=== PATIENT | male | born 1965 | race Two or more races ===

== ENCOUNTER 2024-11-30 19:26 | Emergency (ER) | payer OTHER, SELFPAY ==
[~2024-11-30] VITALS: Ht 162.6 cm; Wt 66.7 kg
--- NOTE | 2024-11-30 19:47 | ED.PDOC ---
History of Present Illness HPI Comments 59 y/o M presents with c/o fever, chills, dry cough and poor appetite for 4x days. He reports no recent travel, sick contact, or any significant medical history. Patient endorses Ibuprofen use prior to ED arrival at 0900, today. Patient was states that his fevers very intermittent and he was going to full d ay without having any fever without the use of antipyretic medication but then it comes back. He also mentions testing negative for Covid19 and Influenza at another facility he went to for symptoms during early onset. Patient denies any nausea, vomiting, abdominal pain, urinary symptoms, or other associated symptoms at this time. Patient states he overall feels very well and has been exercising and going about his day as usual but his family insisted that he come in to be evaluated. Time Seen by MD: 19:40 Reviewed Notes: Nurses Notes, Medications, Allergies Allergies: Coded Allergies: NO KNOWN ALLERGIES (Unverified , 11/30/24) Home Meds Active Scripts Azithromycin (Azithromycin) 1 Gm Pow, 1 PACK PO ONCE, #1 PACK Prov:SINAN ATKINSON MD 11/30/24 Information Source: Patient Mode of Arrival: Ambulatory Severity: Moderate Timing: Hours Duration: Since onset Prehospital treatment: None Past Medical History PAST MEDICAL HISTORY: Denies Surgical History: Denies all surgeries Family History Family History: Unknown Social History Smoker: Non-Smoker Alcohol: Denies ETOH Use Drugs: Denies Drug Use Lives In: Home All Other Systems: Reviewed and Negative (Comprehensive systems review obtained and negative except for what is stated in the HPI.) Physical Exam General Appearance: No Apparent Distress, Normal HEENT: Normal ENT Inspection, Pharynx Normal, TMs Normal Neck: Full Range of Motion, Non-Tender, Normal, Normal Inspection Respiratory: Chest Non-Tender, Lungs Clear, No Accessory Muscle Use, No Respiratory Distress, Normal Breath Sounds, Other (Intermittent dry cough during exam) Cardiovascular: No Edema, No JVD, No Murmur, No Gallop, Normal Peripheral Pulses, Regular Rate/Rhythm Breast Exam: Deferred Gastrointestinal: No Organomegaly, Non Tender, No Pulsatile Mass, Normal Bowel Sounds, Soft Genitalia: Deferred Pelvic: Deferred Rectal: Deferred Extremities: No calf tenderness, Normal capillary refill, Normal inspection, Normal range of motion, Non-tender, No pedal edema Musculoskeletal : Apperance: Normal Neurologic: Alert, procurement buyer II-XII nml as Tested, No Motor Deficits, Normal Affect, Normal Mood, No Sensory Deficits Cerebellar Function: Normal Reflexes: Normal Skin: Dry, Normal Color, Warm Lymphatic: No Adenopathy Was a procedure done? Was a procedure done?: No Differential Dx Considerations may include: URI, PNA, viral syndrome, sinusitis, retropharyngeal abscess, strep throat X-Ray, Labs, Meds, VS Vital Signs Date Time Temp Pulse Resp B/P (MAP) Pulse Ox O2 Delivery O2 Flow Rate FiO2 11/30/24 19:51 102.8 129 20 145/85 (105) 97 102.8 11/30/24 19:51 97 Room Air* 0 21 11/30/24 19:50 102.8 11/30/24 19:49 102.8 Lab Test 11/30/24 20:03 11/30/24 19:51 Range/Units Influenza Type A Antigen Negative Negative Influenza Type B Antigen Negative Negative SARS-CoV-2 Antigen (Rapid) Negative NEGATIVE White Blood Count 5.0 4.4-10.8 10^3/uL Red Blood Count 4.73 4.5-5.90 10^6/uL Hemoglobin 13.6 13.5-17.5 g/dL Hematocrit 40.7 L 41.0-53.0 % Mean Corpuscular Volume 86.0 80.0-100.0 fL Mean Corpuscular Hemoglobin 28.8 28.0-32.0 pg Mean Corpuscular Hemoglobin Concent 33.5 32.0-36.0 g/dL Red Cell Distribution Width 13.8 11.8-14.3 % Platelet Count 197 140-450 10^3/uL Mean Platelet Volume 7.6 6.9-10.8 fL Neutrophils (%) (Auto) 70.8 37.0-80.0 % Lymphocytes (%) (Auto) 16.9 10.0-50.0 % Monocytes (%) (Auto) 11.8 0.0-12.0 % Eosinophils (%) (Auto) 0.1 0.0-7.0 % Basophils (%) (Auto) 0.4 0.0-2.0 % Neutrophils # (Auto) 3.6 1.6-8.6 10 ^3/uL Lymphocytes # (Auto) 0.8 0.4-5.4 10 ^3/uL Monocytes # (Auto) 0.6 0-1.3 10 ^3/uL Eosinophils # (Auto) 0 0-0.8 10 ^3/uL Basophils # (Auto) 0 0-0.2 10 ^3/uL Nucleated Red Blood Cells 0.1 % Sodium Level 135 L 136-145 mmol/L Potassium Level 3.6 3.5-5.1 mmol/L Chloride Level 103 98-107 mmol/L Carbon Dioxide Level 23 20-31 mmol/L Anion Gap 9 5-15 Blood Urea Nitrogen 20 9-23 mg/dL Creatinine 1.01 0.700-1.30 mg/dL Glomerular Filtration Rate Calc 87 >90 mL/min BUN/Creatinine Ratio 19.8 10.0-20.0 Serum Glucose 156 H 74-106 mg/dL Calcium Level 9.1 8.7-10.4 mg/dL Current Medications Medications (Trade) Dose Ordered Sig/Silvia Route Start Time Stop Time Status Last Admin Acetaminophen (Tylenol Tablet) 650 mg ONCE ONCE PO 11/30/24 19:45 11/30/24 19:46 DC 11/30/24 19:50 Ibuprofen (Motrin Tablet) 600 mg ONCE ONCE PO 11/30/24 19:45 11/30/24 19:46 DC 11/30/24 19:49 X-Ray, Labs, Meds, VS Comment 59-year-old male here today with the complaints of fever, chills, decreased appetite, and dry cough. Vitals notable for initial fever which improved with the use of Tylenol/ibuprofen in the ER. Physical exam notable for a dry cough but otherwise unremarkable. COVID and influenza negative. Chest x-ray with evidence of possible viral illness. Given the patient has been experiencing symptoms for four days, I had a long discussion with the him and decided to prescribe him azithromycin that he will fill should his symptoms not improve in 1-2 days. Encouraged the patient to continue to use Tylenol and ibuprofen at home, drink plenty of water, and follow up with his primary care provider within 2-3 days for re-evaluation. Patient was discharged home in stable condition ambulating with a steady gait in no distress. Doubt sinusitis, pneumonia, strep throat, retropharyngeal abscess, otitis media or externa, mastoiditis, ACS, or any other significant acute process. Images Reviewed?: Images reviewed and evaluated by me Time of 1ST Reevaluation: 20:10 Reevaluation 1ST: Unchanged Time of 2ND Reevaluation: 21:04 Reevaluation 2ND: Improved Patient Education/Counseling: Diagnosis, Treatment, Prognosis, Need For Follow Up Family Education/Counseling: No Family Present Additional Information Previous medical encounters reviewed: N/A The following tests were ordered, and results were reviewed by me: CXR, covid19/influenza a/b tests, BMP, CBC Additional Information was gathered from interviewing the following independent historians: N/A I reviewed and agreed with the following test results read by other providers: CXR I discussed treatment and results with medical personnel and: Patient Departure 1 Departure Time of Disposition: 21:18 Impression: Primary Impression: Viral URI Disposition: HOME / SELF CARE / HOMELESS Condition: Stable e-Prescriptions Azithromycin (Azithromycin) 1 Gm Pow 1 PACK PO ONCE, #1 PACK Prov: SINAN ATKINSON MD 11/30/24 Critical Care Note Critical Care Time?: No Stability Stability form required: No Heart Score Heart Score: Heart Score Response (Comments) Value History N/A 0 EKG N/A 0 Age N/A 0 Risk Factors N/A 0 Troponin N/A 0 Total 0 I personally scribed for SINAN ATKINSON MD ([email or web address]) on 11/30/24 at 19:47. Electronically submitted by Rafi Sandoval ([email or web address]). SINAN ATKINSON MD Nov 30, 2024 19:47
[2024-11-30] MEDS: IBUPROFEN 600 MG TAB PO ONE (19:49)
[2024-11-30] MEDS: ACETAMINOPHEN 325 MG TAB PO ONE (19:50)
[2024-11-30 20:17] LABS: Basophils # (auto) 0 10 ^3/uL (0-0.2); Basophils % (auto) 0.4 % (0.0-2.0); Eosinophils # (auto) 0 10 ^3/uL (0-0.8); Eosinophils % (auto) 0.1 % (0.0-7.0); Hematocrit 40.7 % (41.0-53.0); Hemoglobin 13.6 g/dL (13.5-17.5); Lymphocytes # (auto) 0.8 10 ^3/uL (0.4-5.4); Lymphocytes % (auto) 16.9 % (10.0-50.0); Mean Corpuscular Hemoglobin 28.8 pg (28.0-32.0); Mean Corpuscular Hgb Conc. 33.5 g/dL (32.0-36.0); Monocytes # (auto) 0.6 10 ^3/uL (0-1.3); Monocytes % (auto) 11.8 % (0.0-12.0); Neutrophils # (auto) 3.6 10 ^3/uL (1.6-8.6); Neutrophils % (auto) 70.8 % (37.0-80.0); Nucleated Red Blood Cells % 0.1 %; Platelet Count (auto) 197 10^3/uL (140-450); Red Blood Cells 4.73 10^6/uL (4.5-5.90); Red Cell Distribution Width 13.8 % (11.8-14.3)
[2024-11-30 20:18] LABS: Chloride 103 mmol/L (98-107); Potassium 3.6 mmol/L (3.5-5.1)
[2024-11-30 20:19] LABS: Anion Gap 9 (5-15); Calcium 9.1 mg/dL (8.7-10.4); Carbon Dioxide 23 mmol/L (20-31)
--- NOTE | 2024-11-30 20:19 | DVH ---
CHEST RADIOGRAPH Indication: fever Technique: Single frontal view of the chest was obtained Comparison: None FINDINGS: There are increased peribronchial markings bilaterally no iconsolidates or effusions. IMPRESSION: 1. Increased peribronchial markings. Differential diagnosis would include viral infection, bronchitis or asthma.
[2024-11-30 20:24] LABS: BUN/Creatinine Ratio 19.8 (10.0-20.0); Blood Urea Nitrogen 20 mg/dL (9-23)
[2024-11-30 20:25] LABS: Sodium 135 mmol/L (136-145)
[2024-11-30 20:26] LABS: Glucose 156 mg/dL (74-106)
[2024-11-30 20:44] LABS: COVID19 ANTIGEN SOFIA FIA NEGATIVE (NEGATIVE)
[2024-11-30 20:45] LABS: Rapid Influenza A Negative (Negative); Rapid Influenza B Negative (Negative)
[2024-11-30 21:13] VITALS: BP 134/80; PULSE 97; RESP 18; TEMP 99.1; O2SAT 96
[2024-11-30] MEDS ORDERED: AZIT1POW12 PO (21:13)
== END 2024-11-30 21:19 | disposition home or self-care (01) ==
LOC: ER 19:26
DX: J06.9 Acute upper respiratory infection, unspecified (principal); B97.89 Other viral agents as the cause of diseases classified elsewhere; Z20.822 Contact with and (suspected) exposure to COVID-19
CPT/HCPCS: 36415; 71045; 80048; 85025; 87426; 87804

== ENCOUNTER 2025-08-05 01:16 | Emergency (ER) | payer SELFPAY ==
[~2025-08-05] VITALS: Ht 165.1 cm; Wt 69.7 kg
[~2025-08-05 01:16] MED LIST: AZIT1POW12 PO
--- NOTE | 2025-08-05 01:45 | ECG ---
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
--- NOTE | 2025-08-05 02:07 | ED.PDOC ---
History of Present Illness HPI Comments 59-year-old male presents with chief complaint of headache. Patient endorses on sudden, unprovoked, atraumatic onset of pounding pain at around 1900, last night. He reports taking [id number] medications enteritis asleep at off to know avail few hours later. He also states on feeling anxious pulling at urgent care visit for gastrointestinal symptoms on July 30, 2025, and being told on having an abnormal EKG any needing to follow up with Cardiology then. Patient denies having any chest pain, dizziness, vision or speech changes, or further acute symptoms. Upon arrival to the ED triage, patient was found hypertensive 171/91. Patient reports on history of hypertension and being trialed on a new medication, recently, that he reports taking, today Chief Complaint: Abnormal LAB's Time Seen by MD: 02:00 Reviewed Notes: Nurses Notes, Medications, Allergies Allergies: Coded Allergies: NO KNOWN ALLERGIES (Unverified , 11/30/24) Home Meds Active Scripts Amlodipine Besylate (Amlodipine Besylate) 5 Mg Tab, 1 TAB PO DAILY, #90 TAB 3 Refills Prov:LEÓN BEARDEN MD 08/05/25 Azithromycin (Azithromycin) 1 Gm Pow, 1 PACK PO ONCE, #1 PACK Prov:SINAN ATKINSON MD 11/30/24 Information Source: Patient Mode of Arrival: Ambulatory Severity: Moderate Timing: Hours Duration: Since onset Prehospital treatment: None Past Medical History PAST MEDICAL HISTORY: HTN Surgical History: Denies all surgeries Family History Family History: Unknown Social History Smoker: Non-Smoker Alcohol: Denies ETOH Use Drugs: Denies Drug Use Lives In: Home All Other Systems: Reviewed and Negative (As per HPI) Physical Exam General Appearance: Normal, Other (Anxious affect) HEENT: Normal ENT Inspection, Pharynx Normal, TMs Normal Neck: Full Range of Motion, Non-Tender, Normal, Normal Inspection Respiratory: Chest Non-Tender, Lungs Clear, No Accessory Muscle Use, No Respiratory Distress, Normal Breath Sounds Cardiovascular: No Edema, No JVD, No Murmur, No Gallop, Normal Peripheral Pulses, Regular Rate/Rhythm Breast Exam: Deferred Gastrointestinal: No Organomegaly, Non Tender, No Pulsatile Mass, Normal Bowel Sounds, Soft Genitalia: Deferred Pelvic: Deferred Rectal: Deferred Extremities: No calf tenderness, Normal capillary refill, Normal inspection, Normal range of motion, Non-tender, No pedal edema Musculoskeletal : Apperance: Normal Neurologic: Alert, perfume maker II-XII nml as Tested, No Motor Deficits, No Sensory Deficits, Other (Anxious affect) Cerebellar Function: Normal Reflexes: Normal Skin: Dry, Normal Color, Warm Lymphatic: No Adenopathy Was a procedure done? Was a procedure done?: No EKG EKG : Pulse Rate (adult): 73 [place]: Normal Cardiac Rhythm: NSR Block: None Hypertrophy: None ST: Normal Differential Dx Considerations may include: Anxiety, hypertension-primary, hypertensive emergency, migraines, tension headache, aneurysm, among others X-Ray, Labs, Meds, VS Vital Signs Date Time Temp Pulse Resp B/P (MAP) Pulse Ox O2 Delivery O2 Flow Rate FiO2 08/05/25 04:11 98.2 80 18 158/93 (114) 100 98.2 08/05/25 03:52 173/98 08/05/25 03:39 75 16 98 Room Air* 0 21 08/05/25 03:39 98.2 75 16 173/98 (123) 98 98.2 08/05/25 02:07 73 08/05/25 01:39 73 08/05/25 01:29 98.1 102 18 171/91 97 98.1 Lab Test 08/05/25 03:15 08/05/25 02:13 Range/Units Troponin I High Sensitivity 3 L 3 L </=54 ng/L White Blood Count 6.7 4.4-10.8 10^3/uL Red Blood Count 5.09 4.5-5.90 10^6/uL Hemoglobin 14.9 13.5-17.5 g/dL Hematocrit 44.4 41.0-53.0 % Mean Corpuscular Volume 87.3 80.0-100.0 fL Mean Corpuscular Hemoglobin 29.3 28.0-32.0 pg Mean Corpuscular Hemoglobin Concent 33.6 32.0-36.0 g/dL Red Cell Distribution Width 13.2 11.8-14.3 % Platelet Count 276 140-450 10^3/uL Mean Platelet Volume 7.3 6.9-10.8 fL Neutrophils (%) (Auto) 64.6 37.0-80.0 % Lymphocytes (%) (Auto) 25.6 10.0-50.0 % Monocytes (%) (Auto) 8.3 0.0-12.0 % Eosinophils (%) (Auto) 1.1 0.0-7.0 % Basophils (%) (Auto) 0.4 0.0-2.0 % Neutrophils # (Auto) 4.3 1.6-8.6 10 ^3/uL Lymphocytes # (Auto) 1.7 0.4-5.4 10 ^3/uL Monocytes # (Auto) 0.6 0-1.3 10 ^3/uL Eosinophils # (Auto) 0.1 0-0.8 10 ^3/uL Basophils # (Auto) 0 0-0.2 10 ^3/uL Nucleated Red Blood Cells 0.1 % Sodium Level 142 136-145 mmol/L Potassium Level 3.7 3.5-5.1 mmol/L Chloride Level 108 H 98-107 mmol/L Carbon Dioxide Level 26 20-31 mmol/L Anion Gap 8 5-15 Blood Urea Nitrogen 21 9-23 mg/dL Creatinine 1.10 0.700-1.30 mg/dL Glomerular Filtration Rate Calc 78 >90 mL/min BUN/Creatinine Ratio 19.1 10.0-20.0 Serum Glucose 120 H 74-106 mg/dL Calcium Level 8.7 8.7-10.4 mg/dL Magnesium Level 2.3 1.6-2.6 mg/dL Total Bilirubin 0.5 0.2-1.0 mg/dL Aspartate Amino Transferase (AST) 19 13-40 U/L Alanine Aminotransferase (ALT) 25 7-40 U/L Alkaline Phosphatase 81 46-116 U/L Total Protein 6.7 5.7-8.2 g/dL Albumin 4.1 3.2-4.8 g/dL Current Medications Medications (Trade) Dose Ordered Sig/Silvia Route Start Time Stop Time Status Last Admin Lisinopril (Zestril Tablet) 20 mg ONCE ONCE PO 08/05/25 03:45 08/05/25 03:46 DC 08/05/25 03:52 Time of 1ST Reevaluation: 02:30 Reevaluation 1ST: Unchanged Patient Education/Counseling: Diagnosis, Treatment, Need For Follow Up Family Education/Counseling: No Family Present SEPSIS Sepsis Screen Date sepsis recognized/suspect: Aug 05, 2025 Time Sepsis recognized/suspect: 013 Recent Procedure: No On Antibiotic Therapy: No Respiratory Rate >20: No Heart Rate >90: Yes Temp<36 C (96.8 F) or >38.3 C: No SBP <90 or MAP <65 mmHG: No New Acute Mental Status Change: No Is the patient on CPAP, BIPAP,: No Vital Signs Date Time Temp Pulse Resp B/P (MAP) Pulse Ox O2 Delivery O2 Flow Rate FiO2 08/05/25 04:11 98.2 80 18 158/93 (114) 100 98.2 08/05/25 03:52 173/98 08/05/25 03:39 75 16 98 Room Air* 0 21 08/05/25 03:39 98.2 75 16 173/98 (123) 98 98.2 08/05/25 02:07 73 08/05/25 01:39 73 08/05/25 01:29 98.1 102 18 171/91 97 98.1 Laboratory Tests Test 08/05/25 02:13 White Blood Count 6.7 10^3/uL (4.4-10.8) Medications Medications Dose Ordered Sig/Silvia Route Start Time Stop Time Status Last Admin Dose Admin Lisinopril 20 mg ONCE ONCE PO 08/05/25 03:45 08/05/25 03:46 DC 08/05/25 03:52 Departure 1 Departure Time of Disposition: 04:30 Impression: Primary Impression: Headache Additional Impression: Hypertension Disposition: 01 HOME / SELF CARE / HOMELESS Condition: Stable e-Prescriptions Amlodipine Besylate (Amlodipine Besylate) 5 Mg Tab 1 TAB PO DAILY, #90 TAB 3 Refills Prov: LEÓN BEARDEN MD 08/05/25 Discharged With: Self Critical Care Note Critical Care Time?: No Stability Stability form required: No Heart Score Heart Score: Heart Score Response (Comments) Value History N/A 0 EKG N/A 0 Age N/A 0 Risk Factors N/A 0 Troponin N/A 0 Total 0 I personally scribed for LEÓN BEARDEN MD ([email or web address]) on 08/05/25 at 02:07. Electronically submitted by Rafi Sandoval [email or web address]). LEÓN BEARDEN MD Aug 05, 2025 02:07
[2025-08-05 02:32] LABS: Hematocrit 44.4 % (41.0-53.0); Hemoglobin 14.9 g/dL (13.5-17.5); Mean Corpuscular Hemoglobin 29.3 pg (28.0-32.0); Mean Corpuscular Volume 87.3 fL (80.0-100.0); Nucleated Red Blood Cells % 0.1 %
[2025-08-05 02:45] LABS: Alanine Aminotransferase 25 U/L (7-40); Albumin 4.1 g/dL (3.2-4.8); Alkaline Phosphatase 81 U/L (46-116); Anion Gap 8 (5-15); BUN/Creatinine Ratio 19.1 (10.0-20.0); Bilirubin, Total 0.5 mg/dL (0.2-1.0); Blood Urea Nitrogen 21 mg/dL (9-23); Calcium 8.7 mg/dL (8.7-10.4); Carbon Dioxide 26 mmol/L (20-31); Magnesium 2.3 mg/dL (1.6-2.6); Potassium 3.7 mmol/L (3.5-5.1); Sodium 142 mmol/L (136-145); Total Protein 6.7 g/dL (5.7-8.2)
[2025-08-05 02:46] LABS: Chloride 108 mmol/L (98-107); Glucose 120 mg/dL (74-106)
[2025-08-05] MEDS ORDERED: AMLO1TAB22 PO (03:24)
[2025-08-05 03:39] VITALS: PULSE 75; RESP 16; O2SAT 98
[2025-08-05] MEDS: LISINOPRIL 20 MG TAB PO ONE (03:52)
[2025-08-05 04:11] VITALS: BP 158/93; PULSE 80; RESP 18; TEMP 98.2; O2SAT 100
== END 2025-08-05 04:12 | disposition home or self-care (01) ==
LOC: ER 01:16
DX: R51.9 Headache, unspecified (principal); I10 Essential (primary) hypertension; Z79.899 Other long term (current) drug therapy
CPT/HCPCS: 36415; 80053; 83735; 84484; 85025; 93005